=== PATIENT | male | born 1975 | race Caucasian/White ===

== ENCOUNTER → 2020-01-28 | Outpatient (CLI) | payer BC, OTHER ==
[~2020-01-28] VITALS: Ht 182.9 cm; Wt 102.1 kg
[~2020-01-28] MED LIST: FLEXERIL PO
[2020-01-28 12:43] VITALS: BP 166/97
--- NOTE | 2020-01-28 12:44 | NUR ---
Pain Clinic Assessment: 1. History of Osteoarthritis: Not Applicable History of Rheumatoid Arthritis: Not Applicable 2. Height: 6 ft. 0 in. 182.9 cm. Weight: 225.0 lb. oz. 102.060 kg. Patient's BMI: 30.5 3. Vital Signs: BP: 166/97 Pulse: 73 Resp: 18 Temp: 02 Sat: 98 ECG Mon: 4. Pain Intensity: 3/4; 7 AT WORST 5. Fall Risk: Dizziness: N Needs help standing or walking: N Fallen in the last 3 months: N Fall risk comments: 6. Patient on Blood Thinner: None 7. History of Hypertension: Y 8. Opioid Therapy greater than 6 weeks: N Opiate Contract Signed: 9. Risk Assessment Tool Provided: 0-LOW RISK 10. Functional Assessment Tool: 11. Recreational Drug Use: Never Drug Type: Tobacco Use: Never Smoker Tobacco Type: Amount or Packs/day: How Many Years: Alcohol Use: Yes Frequency: Daily Quant: 1-2 DRINKS
--- NOTE | 2020-01-29 11:11 | HPC ---
[facility] [place] [address] PAIN MANAGEMENT CONSULTATION Name: KJ SCHILLING Room #: REG [facility] Mickie#: [id number] Admission: 01/28/20 Attend Phys: Mu Prater DO Discharge: Date of : 75 Report #: [id number] CC: Mu Prater Physician staff HERMINIA Clayton DATE OF SERVICE: 01/28/2020 CHIEF COMPLAINT: Neck pain, left upper extremity pain with paresthesias. HISTORY OF PRESENT ILLNESS: As you know, the patient is a very pleasant 44-year-old male who reports acute onset of neck pain, left upper extremity pain and paresthesia that began 11/28/2019. The patient denies injury or trauma that may have led to symptom development. He is experiencing pain all on the left side. It originally started as left neck pain for which he thought he had "slept wrong." This then progressed to radiate down the arm and into the fingers. He has trialled conservative treatment options including rest, relaxation and mypq-pwq-[id number] medications. He has sought evaluation with chiropractors which provided no significant help. He then sought further evaluation through his primary care physician who then referred the patient on to Neurosurgery. He has been doing home stretching exercises and traction techniques to assist in pain control, but this has not been effective. He discussed his case with Neurosurgery who referred the patient to our clinic to discuss cervical epidural injections to address cervical radiculopathy. It was felt the patient was not a surgical candidate given the findings of his recent MRI and his age. He was referred to our service to discuss treatment options for cervical radiculopathy. The patient indicates today pain is steady in nature, describes the pain as sharp, numbness and tingling. Places current pain score 3/10, daily average of 3-4/10 worst pain has been is 7/10. The patient states the pain is exacerbated with sitting, improves with muscle relaxers and decreasing activities. He has been referred to our service to discuss treatment options for suspected cervical radiculopathy. PAST MEDICAL HISTORY: 1. Borderline hypertension. PAST SURGICAL HISTORY: None. SOCIAL HISTORY: The patient denies tobacco, admits to 1-2 alcohol beverages per day. He denies IV or illicit drug use. He is currently employed as a teacher. He is working, not receiving workmen's compensation nor is he trying to obtain discrete benefits. He is not in litigation in regards to pain. He is unaccompanied at today's visit. REVIEW OF SYSTEMS: Positive for wearing corrective eyewear, neck pain, left upper extremity pain with paresthesias, numbness and tingling. All other review of systems negative per 12-point review of systems other than those listed in history of present illness. Pain impact score 26/70 indicating moderate interference of daily activities secondary to pain. ALLERGIES: No known drug allergies. CURRENT MEDICATIONS: Cyclobenzaprine 10 mg p.o. q. 8 hours p.r.n. muscle spasms. IMAGING: MRI cervical spine obtained 01/02/2020 shows C2-C3 unremarkable, C3-C4 shows posterior disk osteophyte complex, asymmetric to the left, mild facet arthropathy, mild uncovertebral joint changes, [id number]-[id number] left neural foraminal stenosis, mild central canal stenosis, no significant deformity of the cord or cord signal. C4-C5 shows posterior disk osteophyte complex, no significant facet or uncovertebral hypertrophy. No neural foraminal stenosis or central canal stenosis. C5-C6 shows posterior disk osteophyte complex with central disk protrusion, mild facet arthropathy and uncovertebral joint disease, mild bilateral neural foraminal narrowing, mild spinal canal stenosis without deformity of the cord, C6-C7 shows no significant facet or uncovertebral disease, moderate disk bulge, nwhq-wf-[id number] left foraminal stenosis, no central canal stenosis, C7-T1 normal disk configuration. No central canal nor neural foraminal stenosis. 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 No cord lesion or space occupying mass in the area. PHYSICAL EXAMINATION: VITAL SIGNS: Blood pressure 166/97, pulse 73, respiratory rate 18 and unlabored. The patient is 98% on room air, height 6 feet tall, weight 225 pounds, BMI calculated 30.5. GENERAL: Well-developed, well-nourished, well-hydrated 44-year-old male appearing stated age. He is placing current pain score around 3-7/10 depending on activity. HEENT: Normocephalic, atraumatic. Pupils equal, round and reactive to light. Extraocular muscles are intact. NEUROLOGIC: Speech is fluent. The patient deemed an excellent historian. LUNGS: Clear, no wheeze, rhonchi or rales. CARDIOVASCULAR: Regular. No appreciable gallop, no rub. ABDOMEN: Soft, nontender, nondistended, normoactive bowel sounds. EXTREMITIES: Show no clubbing, no cyanosis. No appreciable edema. MUSCULOSKELETAL: Upper extremity strength equal and symmetrical 5/5, intact to light touch from C5-T1 dermatomes. Deep tendon reflexes 2+/4 at biceps, brachioradialis and triceps. Spurling's test is positive left, negative right. Muscle bulk and tone is equal and symmetrical in upper extremities. There is no noted atrophy. Cervical provocation testing is met with slight increase in pain with lateral flexion and rotation to the left. ASSESSMENT: 1. Cervical radiculopathy. 2. Displacement of cervical intervertebral disk with radiculopathy. 3. Cervical spondylosis with radiculopathy. 4. Cervical spinal stenosis. 5. Neural foraminal stenosis of the cervical spine. 6. Lateral recess stenosis of the cervical spine. 7. Cervical degeneration. PLAN: 1. The patient has been referred to our service to discuss treatment options for suspected cervical radiculopathy. The patient was referred to our clinic by Dr. Herminia Clayton the patient's neurosurgeon to discuss options for treatment for cervical radiculopathy. The patient has been experiencing pain since November. He has trialled conservative treatments including chiropractic manipulation xuea-sws-iivjyvy medication and even trying home exercise and stretching programs, which our physician-directed along with traction techniques. Unfortunately, this has not provided much in the way of improvement. He was subsequently referred to our clinic to discuss more aggressive treatment options. The following was discussed with the patient today. We discussed physical therapy, stretching exercises and continuation of traction techniques as a treatment option. This typically takes time to reach efficacy, but could be adjusted and we might see more improvement in symptoms. We discussed medication management adding neuropathic pain medications in conjunction with his current therapies those medications would include amitriptyline, nortriptyline, Cymbalta, Lyrica or gabapentin. We discussed cervical epidural injections for which the patient was referred to our clinic by his neurosurgeon, Dr. Clayton. We also discussed surgical options, though at this point, he does not appear to be a surgical candidate. After reviewing the risks and benefits of all the proposed treatment options, the patient chose to move forward with a cervical epidural injection under fluoroscopic guidance. 2. We will begin the authorization process to preauthorize the patient to undergo cervical epidural injection. This should take about 24 hours. We have tentatively place the appointment for the patient tomorrow to undergo the first in the series of cervical epidural injections. We should have that authorization for the patient to undergo cervical epidural injection by that time. 3. No medication changes made at today's visit. The patient will continue current medical therapy as prior prescribed. 4. We will see the patient back in followup visit tomorrow for a cervical epidural injection under fluoroscopic guidance in hopes of improving his cervical radicular symptoms. 5. We wish to thank Dr. Clayton for the referral of the patient to our clinic. We will keep you apprised of his response to treatment as we address cervical radiculopathy. Again, we wish to thank you for the opportunity to see this patient in consultation. <ELECTRONICALLY SIGNED> By: Mu Prater DO 01/29/20 1111 [id number] Mu Prater DO /nt
== END ==
LOC: PAIN 06:53
PROVIDERS: ATTEND Anesthesiology Pain Medicine
DX: M50.10 Cervical disc disorder with radiculopathy, unspecified cervical region (principal); M48.02 Spinal stenosis, cervical region; M47.22 Other spondylosis with radiculopathy, cervical region; M79.642 Pain in left hand; R20.2 Paresthesia of skin; Z88.8 Allergy status to other drugs, medicaments and biological substances; Z79.899 Other long term (current) drug therapy

== ENCOUNTER → 2020-01-29 | Outpatient (CLI) | payer BC, OTHER ==
[~2020-01-29] VITALS: Ht 182.9 cm; Wt 102.1 kg
[2020-01-29 11:07] VITALS: BP 158/86
--- NOTE | 2020-01-29 11:12 | NUR ---
Pain Clinic Assessment: 1. History of Osteoarthritis: Not Applicable History of Rheumatoid Arthritis: Not Applicable 2. Height: 6 ft. 0 in. 182.9 cm. Weight: 225.0 lb. oz. 102.060 kg. Patient's BMI: 30.5 3. Vital Signs: BP: 158/86 Pulse: 83 Resp: 16 Temp: 02 Sat: 100 ECG Mon: 4. Pain Intensity: 2 5. Fall Risk: Dizziness: N Needs help standing or walking: N Fallen in the last 3 months: N Fall risk comments: 6. Patient on Blood Thinner: None 7. History of Hypertension: Y 8. Opioid Therapy greater than 6 weeks: N Opiate Contract Signed: 9. Risk Assessment Tool Provided: 0-LOW RISK 10. Functional Assessment Tool: 11. Recreational Drug Use: Never Drug Type: Tobacco Use: Never Smoker Tobacco Type: Amount or Packs/day: How Many Years: Alcohol Use: Yes Frequency: Quant:
--- NOTE | 2020-02-04 08:08 | HPC ---
[facility] [place] [address] PAIN MANAGEMENT CONSULTATION Name: TONIEKJ M Room #: REG [facility]#: [id number] Admission: 01/29/20 Attend Phys: Mu Prater DO Discharge: Date of : 75 Report #: [id number] CC: Mu Prater Physician staff HERMINIA Clayton DATE OF SERVICE: 01/29/2020 REFERRING PHYSICIAN: Dr. Herminia Clayton CHIEF COMPLAINT: Neck pain, left upper extremity pain with paresthesias. HISTORY OF PRESENT ILLNESS: As you know, the patient is a 44-year-old male seen in consultation yesterday for cervical radiculopathy. He was made today's appointment to undergo cervical epidural injection under fluoroscopic guidance. He is placing his pain at 2/10. He returns today in followup visit to undergo the first in a series of requested cervical epidural injections. He has had no changes in medical history over the past 24 hours. He returns for the first in the series of injections. ALLERGIES: No known drug allergies. CURRENT MEDICATIONS: Cyclobenzaprine. SOCIAL HISTORY: The patient denies tobacco, alcohol, IV or illicit drug use. He is working, not receiving workmen's compensation, unaccompanied today. IMAGING: No new imaging available. PHYSICAL EXAMINATION: VITAL SIGNS: Blood pressure 150/86, pulse is 83, respiratory rate 16 and unlabored. The patient is 100% on room air, height 6 feet tall, weight 225 pounds, BMI calculated 30.5. GENERAL: Well-developed, well-nourished, well-hydrated 44-year-old male appearing stated age, pain is rated today at 2/10. HEENT: Normocephalic, atraumatic. Pupils equal, round and reactive. Speech fluent. EXTREMITIES: Show no clubbing, no cyanosis, no edema. MUSCULOSKELETAL: Lower extremity strength appears symmetrical 5/5, intact to light touch from C5-T1 dermatomes. Spurling's test positive on the left. ASSESSMENT: 1. Cervical radiculopathy. 2. Displacement of cervical intervertebral disk with radiculopathy. 3. Neural foraminal stenosis of the cervical spine. PLAN: 1. The patient returns today in followup visit to undergo cervical epidural injection under fluoroscopic guidance. The patient was advised risks and benefits of a cervical epidural injection. These risks include but are not necessarily limited to bleeding, bruising, infection, worsening pain, no relief of pain, also risk of temporary or permanent muscle weakness, temporary or permanent nerve damage, possible paralysis and . The patient states understood and wished to proceed. 2. No medication changes made at today's visit. The patient will continue current medical therapy as prior prescribed. 3. We will see the patient back in followup visit in approximately 31 days. At that time, review the efficacy of today's cervical epidural injection and determine next in the series of cervical epidural injections would be recommended. PROCEDURE NOTE DESCRIPTION OF PROCEDURE: C7-T1 cervical epidural steroid injection under fluoroscopic guidance. This is the first procedure of the first series that the patient is undergoing. After obtaining written consent, the patient was taken back to the fluoroscopy suite and placed in a prone position with separate pillows under chest board to decrease cervical lordosis. The skin overlying the cervical area was prepped and draped in an aseptic fashion. The C7-T1 vertebral interspace was identified by AP fluoroscopy. The skin and subcutaneous tissue overlying the target site of injection was anesthetized using 3 mL of 1% lidocaine. A 20-gauge 3-1/2 inch Tuohy needle was advanced under fluoroscopic guidance toward the epidural space using a left paramedian approach. The epidural space was identified using a loss of resistance to air technique. After negative aspiration for heme or cerebrospinal fluid, a total of 1 mL of Omnipaque was injected. A cervical epidurogram was confirmed using AP and oblique fluoroscopy. After negative aspiration for heme or cerebrospinal fluid, 5 mL of a solution containing 2 mL 40 mg per mL, 80 mg total triamcinolone along with 3 mL of lidocaine 1% was injected in increments. Contrast spread was noted from posterior epidural space. The needle was then retracted approximately alf and the needle track was flushed with 1 mL of 1% lidocaine. There were no apparent new sensory deficits in the upper extremities present following the procedure. A sterile bandage was placed over the injection site. The heart rate, pulse oximetry and blood pressure were continuously monitored after the procedure. There were no apparent complications. The patient tolerated the procedure well and was carefully escorted in the recovery room in stable condition. After meeting discharge criteria, the patient was discharged home. <ELECTRONICALLY SIGNED> By: Mu Prater DO 02/04/20 0808 [id number] 55 Mu Prater DO /nt
== END | disposition home or self-care (01) ==
LOC: PAIN 06:53
PROVIDERS: ATTEND Anesthesiology Pain Medicine
DX: M50.10 Cervical disc disorder with radiculopathy, unspecified cervical region (principal); M48.02 Spinal stenosis, cervical region; Z98.890 Other specified postprocedural states; Z79.899 Other long term (current) drug therapy

== ENCOUNTER → 2020-04-01 | Outpatient (CLI) | payer BC, OTHER ==
[~2020-04-01] VITALS: Ht 182.9 cm; Wt 107.2 kg
[~2020-04-01] MED LIST changes: +NEURONTIN300 MG PO
[2020-04-01 14:58] VITALS: BP 135/89
--- NOTE | 2020-04-01 15:18 | NUR ---
Pain Clinic Assessment: 1. History of Osteoarthritis: Not Applicable History of Rheumatoid Arthritis: Not Applicable 2. Height: 6 ft. 0 in. 182.9 cm. Weight: 236.4 lb. oz. 107.231 kg. Patient's BMI: 32.1 3. Vital Signs: BP: 135/89 Pulse: 70 Resp: 16 Temp: 02 Sat: 97 ECG Mon: 4. Pain Intensity: 3 5. Fall Risk: Dizziness: N Needs help standing or walking: N Fallen in the last 3 months: N Fall risk comments: 6. Patient on Blood Thinner: None 7. History of Hypertension: Y 8. Opioid Therapy greater than 6 weeks: N Opiate Contract Signed: 9. Risk Assessment Tool Provided: 0-LOW RISK 10. Functional Assessment Tool: 11. Recreational Drug Use: Never Drug Type: Tobacco Use: Never Smoker Tobacco Type: Amount or Packs/day: How Many Years: Alcohol Use: Yes Frequency: Quant:
--- NOTE | 2020-04-06 10:13 | HPC ---
[facility] [address] [place] [address] PAIN MANAGEMENT CONSULTATION Name: KJ SCHILLING Room #: REG [facility]#: [id number] Admission: 04/01/20 Attend Phys: Mu Prater DO Discharge: Date of : 75 Report #: [id number] THIS REPORT FOR: cc: HERMINIA CLAYTON MD Physician not on staff Mu Prater DO ~ DATE OF SERVICE: 04/01/2020 REFERRING PHYSICIAN: Dr. Herminia Clayton. CHIEF COMPLAINT: Neck pain, left upper extremity pain with paresthesias. HISTORY OF PRESENT ILLNESS: As you know, the patient is a very pleasant 44-year-old male seen in consultation to address cervical radiculopathy at our visit of 01/29/2020. At that time, the patient was diagnosed with cervical radiculopathy secondary to the displacement of a cervical disk. He underwent a cervical epidural injection with improvement in symptoms. He reports that the cervical epidural injection provided at that visit gave 90% improvement in overall pain lasting for nearly a month and a half. Unfortunately, his symptoms have begun to return. He did have reduction in his paresthesias. His pain was significantly improved. He returns today in followup visit stating he is having slow and progressive return of symptoms and paresthesias, requesting to undergo the next in the series of cervical epidural injections. The patient denies injury or trauma. ALLERGIES: No known drug allergies. CURRENT MEDICATION: Cyclobenzaprine. SOCIAL HISTORY: The patient denies tobacco, alcohol, IV or illicit drug use. He is working, not receiving workmen's compensation, unaccompanied today. IMAGING: No new imaging available. PHYSICAL EXAMINATION: VITAL SIGNS: Blood pressure 135/89, pulse is 70, respiratory rate 16 and unlabored. The patient is 97% on room air, height 6 feet tall, weight 236.4 pounds, and BMI calculated 32.1. GENERAL: Well-developed, well-nourished, well-hydrated 44-year-old male appearing stated age, pain is rated today 3/10. HEENT: Normocephalic, atraumatic. Pupils equal, round. The patient is wearing a mask in compliance with COVID-19 regulations. EXTREMITIES: Show no clubbing, no cyanosis, no edema. MUSCULOSKELETAL: Upper extremity strength appears symmetrical 5/5. He is intact to light touch from C5-T1 dermatomes. Spurling's test remains positive on the left. Deep tendon reflexes equal and symmetrical in the upper [facility] [address] [place] [address] PAIN MANAGEMENT CONSULTATION Name: KJ SCHILLING Room #: REG [facility]#: [id number] Admission: 04/01/20 Attend Phys: Mu Prater DO Discharge: Date of : 75 Report #: [id number]. ASSESSMENT: 1. Cervical radiculopathy. 2. Displacement of cervical intervertebral disk with radiculopathy. 3. Neural foraminal stenosis of the cervical spine. 4. Chronic intractable pain. PLAN: 1. The patient returns today in followup visit to undergo the second in the series of cervical epidural injections. The initial injection provided on 01/29/2020 gave 1-1/2 months' worth of 90% improvement in symptoms, but unfortunately his symptoms have begun to return. He returns today in followup visit to undergo second in the series of cervical epidural injections. The patient has been advised risks and benefits of this procedure and states he understood and wished to proceed. 2. The patient was given a prescription of gabapentin for neuropathic pain control. He will start 1 tab p.o. at bedtime for 5 nights, then 2 tabs p.o. at bedtime for 5 nights, then 3 tabs p.o. at bedtime for 5 nights. If no improvement in symptoms and no side effects, then the patient will increase the dose to 1 tab in the morning and 3 tabs at night. He was given #120 tablets of the 300 mg dose. If he has any questions or concerns in regards to the medication, contact our clinic. He was given a titration schedule in written form to follow. 3. We will see the patient back in followup visit on an as needed basis for possible next in the series of cervical epidural injections. The patient will contact our clinic if he does initiate the gabapentin therapy and advice of its effects. PROCEDURE NOTE DESCRIPTION OF PROCEDURE: C7-T1 cervical epidural steroid injection under fluoroscopic guidance. This is the second procedure of the first series that the patient is undergoing. After obtaining written consent, the patient was taken back to the fluoroscopy suite and placed in a prone position with separate pillows under chest board to decrease cervical lordosis. The skin overlying the cervical area was prepped and draped in an aseptic fashion. The C7-T1 vertebral interspace was identified by AP fluoroscopy. The skin and subcutaneous tissue overlying the target site of injection was anesthetized using 3 mL of 1% lidocaine. A 20-gauge 3-1/2 inch Tuohy needle was advanced under fluoroscopic guidance toward the epidural space using a midline approach. The epidural space was identified using a loss of resistance to air technique. After negative aspiration for heme or cerebrospinal fluid, a total of 1 mL of Omnipaque was [address] [address] PAIN MANAGEMENT CONSULTATION Name: KJ SCHILLING Room #: REG [facility] Mickie#: [id number] Admission: 04/01/20 Attend Phys: Mu Prater DO Discharge: Date of : 75 Report #: [id number] injected. A cervical epidurogram was confirmed using AP and oblique fluoroscopy. After negative aspiration for heme or cerebrospinal fluid, 5 mL of a solution containing 2 mL 40 mg per mL, 80 mg total triamcinolone along with 3 mL of lidocaine 1% was injected in increments. Contrast spread was noted from posterior epidural space. The needle was then retracted approximately alf and the needle track was flushed with 1 mL of 1% lidocaine. There were no apparent new sensory deficits in the upper extremities present following the procedure. A sterile bandage was placed over the injection site. The heart rate, pulse oximetry and blood pressure were continuously monitored after the procedure. There were no apparent complications. The patient tolerated the procedure well and was carefully escorted in the recovery room in stable condition. After meeting discharge criteria, the patient was discharged home. <ELECTRONICALLY SIGNED> By: Mu Prater DO 04/06/20 1013 1710 20 Mu Prater DO /nt
== END | disposition home or self-care (01) ==
LOC: PAIN 06:59
PROVIDERS: ATTEND Anesthesiology Pain Medicine
DX: M50.10 Cervical disc disorder with radiculopathy, unspecified cervical region (principal); M48.02 Spinal stenosis, cervical region; G89.29 Other chronic pain; Z98.890 Other specified postprocedural states; Z79.899 Other long term (current) drug therapy

== ENCOUNTER → 2020-06-23 | Outpatient (CLI) | payer BC, OTHER ==
[~2020-06-23] VITALS: Ht 182.9 cm; Wt 107.9 kg
[~2020-06-23] MED LIST changes: +LYRICA 75 MG CA75 MG PO
[2020-06-23 08:23] VITALS: BP 171/84
--- NOTE | 2020-06-23 08:24 | NUR ---
Pain Clinic Assessment: 1. History of Osteoarthritis: Not Applicable History of Rheumatoid Arthritis: Not Applicable 2. Height: 6 ft. 0 in. 182.9 cm. Weight: 237.8 lb. oz. 107.866 kg. Patient's BMI: 32.2 3. Vital Signs: BP: 171/84 Pulse: 64 Resp: 16 Temp: 02 Sat: 99 ECG Mon: 4. Pain Intensity: 1 TO 2 5. Fall Risk: Dizziness: N Needs help standing or walking: N Fallen in the last 3 months: N Fall risk comments: 6. Patient on Blood Thinner: None 7. History of Hypertension: Y 8. Opioid Therapy greater than 6 weeks: N Opiate Contract Signed: 9. Risk Assessment Tool Provided: 0-LOW RISK 10. Functional Assessment Tool: 11. Recreational Drug Use: Never Drug Type: Tobacco Use: Never Smoker Tobacco Type: Amount or Packs/day: How Many Years: Alcohol Use: Yes Frequency: Weekly Quant: 4 TO 5 xs
--- NOTE | 2020-06-24 07:28 | OD ---
[facility] [place] [address] DELIVERY NOTE Name: KJ SCHILLING [id number] Admission: 06/23/20 Attend Phys: Mu Prater DO Discharge: Date of : 75 Report #: [id number] THIS REPORT FOR: //name// DATE OF SERVICE: 06/23/2020 CHIEF COMPLAINT: Neck pain, left upper extremity pain with paresthesias. HISTORY OF PRESENT ILLNESS: As you know, the patient is a very pleasant 45-year-old male seen in consultation to address cervical radiculopathy of a visit of 01/29/2020. At that time, the patient was diagnosed with cervical radiculopathy secondary to the displacement of cervical intervertebral disk. He has undergone cervical epidural injections on 01/29/2020, 04/01/2020 with good improvement in overall pain, now reporting pain score at 0/10. He continues to experience paresthesias radiating from his neck into his thumb, first and second digits. He states that the numbness and tingling have become fairly profound. We started the patient on gabapentin. He is taking 300 mg in morning and 900 mg at night. States he is continuing to experience symptoms of pain and paresthesias in the hand and states that the gabapentin makes him somewhat somnolent. He returns today in followup visit to discuss treatment options. The patient is placing his pain today at 1-2/10. His paresthesias, he rates at about 7/10. He denies new injury, trauma or any changes in medical history since our last visit. ALLERGIES: No known drug allergies. CURRENT MEDICATIONS: Cyclobenzaprine, gabapentin. SOCIAL HISTORY: The patient denies tobacco, alcohol, IV or illicit drug use. He is working, not receiving workmen's compensation, unaccompanied today. IMAGING: No new imaging available. PHYSICAL EXAMINATION: VITAL SIGNS: Blood pressure 171/84, pulse 64, respiratory rate 16 and unlabored. The patient is 99% on room air, height 6 feet tall, weight 237.8 pounds, BMI calculated 32.2. GENERAL: Well-developed, well-nourished, well-hydrated 45-year-old male appearing stated age, pain is rated at 1/10, paresthesias up to 5/10. HEENT: Normocephalic, atraumatic. Pupils equal, round and reactive. The patient is wearing a mask in compliance with COVID-19 regulations. EXTREMITIES: Show no clubbing, no cyanosis, no edema. MUSCULOSKELETAL: Spurling's test is positive on the left, negative on right. Deep tendon reflexes are symmetrical in upper extremities. Muscle bulk and tone equal and symmetrical in upper extremities. Strength appears normal 5/5, though there is some decreased strength sensation with glass inserter on the left, specifically over the thumb, first and second digits. [address] [address] DELIVERY NOTE Name: KJ SCHILLING Room #: REG [facility]#: [id number] Admission: 06/23/20 Attend Phys: Mu Prater DO Discharge: Date of : 75 Report #: [id number] ASSESSMENT: 1. Cervical radiculopathy. 2. Displacement of cervical intervertebral disk with radiculopathy. 3. Neuroforaminal stenosis of the cervical spine. 4. Chronic intractable pain. PLAN: 1. The patient returns today in followup visit with continued paresthesias involving the left upper extremity, radiating to the thumb, first and second digits on the left. The patient has been started on gabapentin, but has noted no significant benefit other than he is sleeping well at night, but is unable to escalate doses of gabapentin in the morning due to sleepiness, disorientation, and confusion. He returns today for possible adjustments in medication management. He also wishes to discuss the possibility of undergoing this third in the series of cervical epidural injections, though the patient recently received a COVID-19 injection, which precludes him from undergoing the procedure until he is 2 weeks from that injection timeframe. The patient and I discussed rotating from gabapentin to Lyrica. He is amenable to this change. He will start with 75 mg in the morning and 150 mg at night, which is an equivalent dose of the gabapentin he is currently on with an escalation of approximately 25%. He will watch for side effects of sleepiness, disorientation, confusion, mental slowing with the therapy. If no improvement in symptoms over the next 5 days in regards to his paresthesias, he is increasing to 150 mg in the morning and 150 mg at night. I have given the patient Lyrica 75 mg tablets, #120. He will watch for any side effects of sleepiness, disorientation, confusion, mental slowing with use of medication. If he notes these side effects, contact our clinic. Prescription sent via e-scribe to local pharmacy. 2. The patient will discuss the possibility of undergoing a cervical epidural injection if necessary. We are hopeful the patient will see good benefit with today's procedure. We will schedule the patient back for a cervical epidural injection once he has completed the timeframe required by the [facility] after COVID injections, which at this time is 2 weeks from the final injection. 3. The patient will be following up with his neurosurgeon, Dr. Augustin Clayton, for suggestions and treatment options. We will await their recommendations as well. <ELECTRONICALLY SIGNED> By: Mu Prater DO 06/24/20 0728 0923 1000 Mu Prater DO /nt
== END ==
LOC: PAIN 06:54
PROVIDERS: ATTEND Anesthesiology Pain Medicine
DX: M50.10 Cervical disc disorder with radiculopathy, unspecified cervical region (principal); M48.02 Spinal stenosis, cervical region; M79.642 Pain in left hand; R20.2 Paresthesia of skin; G89.29 Other chronic pain

== ENCOUNTER → 2020-07-28 | Outpatient (CLI) | payer BC, OTHER ==
[~2020-07-28] VITALS: Ht 182.9 cm; Wt 107.6 kg
[~2020-07-28] MED LIST changes: +LYRICA225 MG PO
--- NOTE | ~2020-07-28 | HPC ---
[facility] [place] [address] PAIN MANAGEMENT CONSULTATION Name: KJ SCHILLING Room #: REG [facility].#: [id number] Admission: 07/28/20 Attend Phys: Mu Prater DO Discharge: Date of : 75 Report #: [id number] THIS REPORT FOR: cc: HERMINIA HO MD Physician not on staff Mu Prater DO ~ DATE OF SERVICE: 07/28/2020 CHIEF COMPLAINT: Neck pain, left upper extremity pain with paresthesias. HISTORY OF PRESENT ILLNESS: As you know, the patient is a very pleasant 45-year-old male seen in consultation to address cervical radiculopathy. The patient reports pain began 11/28/2019 and progressively worsened. Unfortunately, he failed conservative treatment, moved on to see Neurosurgery, who advised the patient to trial cervical epidural injections. He underwent a cervical epidural injection on 01/29/2020 and a repeat cervical epidural injection on 04/01/2020 with good benefit. He continues to experience numbness and tingling in the thumb, first and second digit on the left. We started the patient on Lyrica at the last visit. He is now taking 150 mg b.i.d. dose and is noticing improvement in symptoms, but is experiencing no side effects. Despite this increase in medication, he is placing pain at 3/10, returning today for further adjustments in medication management. He is denying side effects again of sleepiness, disorientation, confusion, mental slowing with use of the Lyrica. ALLERGIES: No known drug allergies. CURRENT MEDICATIONS: CYCLOBENZAPRINE AND LYRICA. SOCIAL HISTORY: The patient denies tobacco, alcohol, IV or illicit drug use. He is working, not receiving workmen's compensation, unaccompanied today. IMAGING: No new imaging available. PHYSICAL EXAMINATION: VITAL SIGNS: Blood pressure 139/87, pulse 64, respiratory rate 16 and unlabored. The patient is 98% on room air, height 6 feet tall, weight 237.2 pounds, BMI calculated 32.2. GENERAL: Well-developed, well-nourished, well-hydrated 45-year-old male appearing stated age, pain is rated today 3/10. HEENT: Normocephalic, atraumatic. Pupils equal, round, and responsive. The patient is wearing a mask in compliance with COVID-19 regulations. EXTREMITIES: Show no clubbing, no cyanosis. No appreciable edema. MUSCULOSKELETAL: Spurling's test remains positive left, negative right. Deep tendon reflexes are once again symmetrical, 2+ at biceps, brachioradialis and triceps. Strength appears normal at 5/5, though there is slight decrease in production engineer sensation on the left over the thumb, first and second digits consistent [address] [address] PAIN MANAGEMENT CONSULTATION Name: KJ SCHILLING [facility] [id number] Admission: 07/28/20 Attend Phys: Mu Prater DO Discharge: Date of : 75 Report #: [id number] with physical findings on physical exam at the last visit. ASSESSMENT: 1. Cervical radiculopathy. 2. Displacement of cervical intervertebral disk with radiculopathy. 3. Neural foraminal stenosis of the cervical spine. 4. Chronic intractable pain. PLAN: 1. The patient returns today in followup visit reporting improvement in symptoms with the Lyrica at 150 mg b.i.d. dose. We have titrated from a [address] up to 150 mg b.i.d. and the patient is noticing improvement in symptoms without side effects. We recommend continuing the titration to 225 mg b.i.d. The patient was advised to watch for side effects with this medication including sleepiness, disorientation, confusion, mental slowing. To date, he has had no side effects, but he will continue to monitor. 2. The patient was provided prescription of Lyrica 225 mg dose one tablet p.o. b.i.d. I have given the patient #60 tablets to release today with 2 refills, 3 months' worth of medication. Prescription sent via e-scribe to local pharmacy. 3. We plan to see the patient back in followup visit on an as-needed basis for the next in the series of cervical epidural injections. We are pleased to see the patient has done well from a pain standpoint in regards to that treatment and we will be available to see him back if the symptoms of pain return. If he continues to experience numbness and tingling, contact our clinic and we will make further adjustments in his Lyrica. By: 1411 [id number] Mu Prater DO /nt
[2020-07-28 13:03] VITALS: BP 139/87
--- NOTE | 2020-07-28 13:21 | NUR ---
Pain Clinic Assessment: 1. History of Osteoarthritis: Not Applicable History of Rheumatoid Arthritis: Not Applicable 2. Height: 6 ft. 0 in. 182.9 cm. Weight: 237.2 lb. oz. 107.593 kg. Patient's BMI: 32.2 3. Vital Signs: BP: 139/87 Pulse: 64 Resp: 16 Temp: 02 Sat: 98 ECG Mon: 4. Pain Intensity: 3 5. Fall Risk: Dizziness: N Needs help standing or walking: N Fallen in the last 3 months: N Fall risk comments: 6. Patient on Blood Thinner: None 7. History of Hypertension: Y 8. Opioid Therapy greater than 6 weeks: N Opiate Contract Signed: 9. Risk Assessment Tool Provided: 0-LOW RISK 10. Functional Assessment Tool: 11. Recreational Drug Use: Never Drug Type: Tobacco Use: Never Smoker Tobacco Type: Amount or Packs/day: How Many Years: Alcohol Use: Yes Frequency: Quant:
== END ==
LOC: PAIN 10:31
PROVIDERS: ATTEND Anesthesiology Pain Medicine
DX: M50.10 Cervical disc disorder with radiculopathy, unspecified cervical region (principal); M48.02 Spinal stenosis, cervical region; G89.4 Chronic pain syndrome; M79.662 Pain in left lower leg; R00.0 Tachycardia, unspecified; Z79.891 Long term (current) use of opiate analgesic; Z79.899 Other long term (current) drug therapy